=== PATIENT | male | born 1965 | race Two or more races ===

== ENCOUNTER 2022-07-26 21:41 | Emergency (ER) | payer MEDICAID, OTHER | END 2022-07-26 22:39 | disposition left against medical advice (07) | LOC: ER 21:41 | DX: R73.9 Hyperglycemia, unspecified (principal); Z53.21 Procedure and treatment not carried out due to patient leaving prior to being seen by health care provider ==

== ENCOUNTER 2025-05-12 20:43 | Emergency (ER) | payer MEDICAID ==
[~2025-05-12] VITALS: Ht 170.2 cm; Wt 81.8 kg
[2025-05-12 21:03] LABS: Hematocrit 46.7 % (41.0-53.0); Hemoglobin 16.3 g/dL (13.5-17.5); Mean Corpuscular Hemoglobin 31.3 pg (28.0-32.0); Mean Corpuscular Volume 89.6 fL (80.0-100.0); Nucleated Red Blood Cells % 0.1 %
[2025-05-12 21:09] LABS: Chloride 101 mmol/L (98-107); Potassium 4.0 mmol/L (3.5-5.1); Sodium 142 mmol/L (136-145)
[2025-05-12 21:10] LABS: Anion Gap 12 (5-15); Calcium 10.0 mg/dL (8.7-10.4); Carbon Dioxide 29 mmol/L (20-31)
--- NOTE | 2025-05-12 21:10 | ED.PDOC ---
HPI Comments 59-year-old male who came to ER for chest pain. Patient has history of diabetes and gastritis. He ate tacos and shortly afterwards developed midsternal chest pain, palpitations, diaphoresis. Would also complain of epigastric abdominal pain. Denies any nausea or vomiting. Chief Complaint: Chest Pain Time Seen by MD: 21:09 Reviewed Notes: Nurses Notes Allergies: Coded Allergies: NO KNOWN ALLERGIES (Unverified , 05/12/25) Information Source: Patient Mode of Arrival: Ambulatory Past Medical History PAST MEDICAL HISTORY: DM, PUD Past Medical History (Other): Gastritis Surgical History: Denies all surgeries Family History Family History: Reviewed,noncontributory to illness Social History Smoker: Non-Smoker Alcohol: Denies ETOH Use Drugs: Denies Drug Use Lives In: Home Constitutional: denies: chills, diaphoresis, fatigue, fever, malaise, sweats, weakness, others EENTM: denies: blurred vision, double vision, ear bleeding, ear discharge, ear drainage, ear pain, ear ringing, eye pain, eye redness, hearing loss, mouth pain, mouth swelling, nasal discharge, nose bleeding, nose congestion, nose pa in, photophobia, tearing, throat pain, throat swelling, voice changes, others Respiratory: denies: cough, hemoptysis, orthopnea, SOB at rest, shortness of breath, SOB with excertion, stridor, wheezing, others Cardiovascular: reports: chest pain, diaphoresis, palpitations; denies: dizzy spells, Dyspnea on exertion, edema, irregular heart beat, left arm pain, lightheadedness, PND, syncope, others Gastrointestinal: reports: abdominal pain; denies: abdomen distended, blood streaked bowels, constipated, diarrhea, dysphagia, difficulty swallowing, hematemesis, melena, nausea, poor appetite, poor fluid intake, rectal bleeding, rectal pain, vomiting, others Genitourinary: denies: burning, dysuria, flank pain, frequency, hematuria, incontinence, penile discharge, penile sore, pain, testicle pain, testicle swelling, urgency, others Neurological: denies: dizziness, fainting, headache, left sided numbness, left sided weakness, numbness, paresthesia, pre-existing deficit, right sided numbness, right sided weakness, seizure, speech problems, tingling, tremors, weakness, others Musculoskeletal: denies: back pain, gout, joint pain, joint swelling, muscle pain, muscle stiffness, neck pain, others Integumetry: denies: bruises, change in color, change in hair/nails, dryness, laceration, lesions, lumps, rash, wounds, others Allergic/Immunocompromised: denies: Difficulty Healing, Frequent Infections, H venus, Itching, others Hematologic/Lymphatic: denies: anemia, blood clots, easy bleeding, easy bruising, swollen glands, others Endocrine: denies: excessive hunger, excessive sweating, excessive thirst, excessive urination, flushing, intolerance to cold, intolerance to heat, unexplained weight gain, unexplained weight loss, others Psychiatric: denies: anxiety, bipolar disorder, depression, hopeless, panic disorder, schizophrenia, sleepless, suicidal, others Physical Exam General Appearance: No Apparent Distress, Normal HEENT: Normal ENT Inspection, Pharynx Normal, TMs Normal Neck: Full Range of Motion, Non-Tender, Normal, Normal Inspection Respiratory: Chest Non-Tender, Lungs Clear, No Accessory Muscle Use, No Respiratory Distress, Normal Breath Sounds Cardiovascular: No Edema, No JVD, No Murmur, No Gallop, Normal Peripheral Pulses, Regular Rate/Rhythm Breast Exam: Deferred Gastrointestinal: No Organomegaly, Non Tender, No Pulsatile Mass, Normal Bowel Sounds, Soft Genitalia: Deferred Pelvic: Deferred Rectal: Deferred Extremities: No calf tenderness, Normal capillary refill, Normal inspection, Normal range of motion, Non-tender, No pedal edema Musculoskeletal : Apperance: Normal Neurologic: Alert, offline cutter II-XII nml as Tested, No Motor Deficits, Normal Affect, Normal Mood, No Sensory Deficits Cerebellar Function: Normal Reflexes: Normal Skin: Dry, Normal Color, Warm Lymphatic: No Adenopathy EKG EKG : Pulse Rate (adult): 88 [place]: Normal Cardiac Rhythm: NSR Block: None Comments Isolated TWI in III Was a procedure done? Was a procedure done?: No CP Differential Dx Differential Diagnosis: Angina, Anxiety / Panic Attack Differential Diagnosis: Angina, Chest Wall Pain, Costochondritis, Esophageal reflux/spasm, Gastritis X-Ray, Labs, Meds, VS Vital Signs Date Time Temp Pulse Resp B/P (MAP) Pulse Ox O2 Delivery O2 Flow Rate FiO2 05/12/25 22:47 98.2 77 16 134/91 (105) 97 98.2 05/12/25 22:17 88 05/12/25 20:50 97.3 90 18 168/105 96 97.3 Lab Test 05/12/25 21:45 05/12/25 20:59 Range/Units Troponin I High Sensitivity < 3 L < 3 L </=54 ng/L White Blood Count 7.6 4.4-10.8 10^3/uL Red Blood Count 5.21 4.5-5.90 10^6/uL Hemoglobin 16.3 13.5-17.5 g/dL Hematocrit 46.7 41.0-53.0 % Mean Corpuscular Volume 89.6 80.0-100.0 fL Mean Corpuscular Hemoglobin 31.3 28.0-32.0 pg Mean Corpuscular Hemoglobin Concent 34.9 32.0-36.0 g/dL Red Cell Distribution Width 13.2 11.8-14.3 % Platelet Count 249 140-450 10^3/uL Mean Platelet Volume 8.0 6.9-10.8 fL Neutrophils (%) (Auto) 54.7 37.0-80.0 % Lymphocytes (%) (Auto) 35.7 10.0-50.0 % Monocytes (%) (Auto) 8.1 0.0-12.0 % Eosinophils (%) (Auto) 0.9 0.0-7.0 % Basophils (%) (Auto) 0.6 0.0-2.0 % Neutrophils # (Auto) 4.2 1.6-8.6 10 ^3/uL Lymphocytes # (Auto) 2.7 0.4-5.4 10 ^3/uL Monocytes # (Auto) 0.6 0-1.3 10 ^3/uL Eosinophils # (Auto) 0.1 0-0.8 10 ^3/uL Basophils # (Auto) 0 0-0.2 10 ^3/uL Nucleated Red Blood Cells 0.1 % Sodium Level 142 136-145 mmol/L Potassium Level 4.0 3.5-5.1 mmol/L Chloride Level 101 98-107 mmol/L Carbon Dioxide Level 29 20-31 mmol/L Anion Gap 12 5-15 Blood Urea Nitrogen 12 9-23 mg/dL Creatinine 1.11 0.700-1.30 mg/dL Glomerular Filtration Rate Calc 77 >90 mL/min BUN/Creatinine Ratio 10.8 10.0-20.0 Serum Glucose 281 H 74-106 mg/dL Calcium Level 10.0 8.7-10.4 mg/dL EXAM: XY CHEST XRAY 1 VIEW HISTORY: CP TECHNIQUE: 1 view of the chest COMPARISON: None FINDINGS/IMPRESSION: LUNGS: No pleural effusion, consolidation, or pneumothorax. MEDIASTINUM: Unremarkable. BONES: No acute osseous abnormality. OTHER: None. Time of 1ST Reevaluation: 21:05 Reevaluation 1ST: Unchanged Time of 2ND Reevaluation: 23:01 Reevaluation 2ND: Improved Patient Education/Counseling: Diagnosis, Treatment Family Education/Counseling: No Family Present SEPSIS Sepsis Screen Date sepsis recognized/suspect: May 12, 2025 Time Sepsis recognized/suspect: 2056 Recent Procedure: No On Antibiotic Therapy: No Respiratory Rate >20: No Heart Rate >90: No Temp<36 C (96.8 F) or >38.3 C: No SBP <90 or MAP <65 mmHG: No New Acute Mental Status Change: No Is the patient on CPAP, BIPAP,: No Physician Orders Electrocardigram (05/12/25 20:47) Electrocardigram (05/12/25 21:47) Electrocardigram (05/12/25 23:47) Chest Xray 1 View (05/12/25 20:47) Vital Signs Date Time Temp Pulse Resp B/P (MAP) Pulse Ox O2 Delivery O2 Flow Rate FiO2 05/12/25 22:47 98.2 77 16 134/91 (105) 97 98.2 05/12/25 22:17 88 05/12/25 20:50 97.3 90 18 168/105 96 97.3 Laboratory Tests Test 05/12/25 20:59 White Blood Count 7.6 10^3/uL (4.4-10.8) Departure 1 Departure Time of Disposition: 22:17 (59-year-old male with past medical history of hypertension and gastritis presenting for evaluation of midsternal chest discomfort which started shortly after he ate some tacos. Given symptoms triggered by eating with known gastritis seems discomfort likely related to underlying gastritis. Given the reports of midsternal chest discomfort consider possible ACS. Patient has a heart score of 2. Initial screening CBCs within normal limits. Serial troponins obtained negative, does not feel his symptoms distant with ACS. Patient appears comfortable, no tearing chest pain, no widened mediastinum on chest x-ray, not concerning for aortic aneurysm, dissection. Chest x-ray was performed which shows no evidence of any acute cardiopulmonary process. Patient was given oral Tylenol, viscous lidocaine, Pepcid, Maalox, Reglan with improvement of discomfort. Given serial troponins that are negative with symptoms that improved with GI cocktail pt is stable for discharge further outpatient workup and management. Will be given a prescription for Pepcid, Maalox, Zofran to take as needed.) Impression: Primary Impression: Midsternal chest pain Additional Impressions: Epigastric pain Nausea Disposition: HOME / SELF CARE / HOMELESS Condition: Stable e-Prescriptions Ondansetron Odt 4MG Tab (ZOFRAN PO) 4 Mg Tb 4 MG PO Q6HPRN PRN for 3 Days, #12 TAB ODT TAB-DISSOLVE IN MOUTH, THEN SWALLOW Prov: FATEMEH POSEY MD 05/12/25 Alum & Mag Hydrox-Simethicone (Maalox Plus) 30 Ml Ss 30 ML PO BIDPRN PRN for 7 Days, #240 ML Prov: FATEMEH POSEY MD 05/12/25 Famotidine (PEPCID TABLET) 20 Mg Tb 1 TAB PO DAILY PRN for 30 Days, #30 TAB 5 Refills Prov: FATEMEH POSEY MD 05/12/25 Discharged With: Self Critical Care Note Critical Care Time?: No Stability Stability form required: No Heart Score Heart Score: Heart Score Response (Comments) Value History Slightly Suspicious 0 EKG Normal 0 Age 45-64 1 Risk Factors 1 or 2 risk factors 1 Troponin Normal limit 0 Total 2 I personally scribed for FATEMEH POSEY MD ([email or web address]) on 05/12/25 at 21:09. Electronically submitted by Ortiz Chaudhary ([employer]). I personally scribed for FATEMEH POSEY MD ([email or web address]) on 05/12/25 at 21:44. Electronically submitted by Ortiz Chaudhary ([employer]). FATEMEH POSEY MD May 12, 2025 21:09
[2025-05-12 21:15] LABS: BUN/Creatinine Ratio 10.8 (10.0-20.0); Blood Urea Nitrogen 12 mg/dL (9-23)
[2025-05-12 21:19] LABS: Glucose 281 mg/dL (74-106)
--- NOTE | 2025-05-12 21:33 | DVH ---
EXAM: XY CHEST XRAY 1 VIEW HISTORY: CP TECHNIQUE: 1 view of the chest COMPARISON: None FINDINGS/IMPRESSION: LUNGS: No pleural effusion, consolidation, or pneumothorax. MEDIASTINUM: Unremarkable. BONES: No acute osseous abnormality. OTHER: None.
[2025-05-12 22:47] VITALS: BP 134/91; PULSE 77; RESP 16; TEMP 98.2; O2SAT 97
[2025-05-12] MEDS ORDERED: FAMO20TA10 PO (23:04)
[2025-05-12] MEDS ORDERED: ZOFR4T PO (23:04)
[2025-05-12] MEDS ORDERED: MAA30LQ PO (23:04)
[2025-05-12] MEDS: METOCLOPRAMIDE HCL 10 MG TAB PO ONE (23:35)
[2025-05-12] MEDS: MAALOX PLUS or MAALOX 30 ML PO ONE (23:35)
[2025-05-12] MEDS: FAMOTIDINE 20 MG TAB PO ONE (23:35)
[2025-05-12] MEDS: LIDOCAINE VISCOUS 2% 15ML UD PO ONE (23:36)
[2025-05-12] MEDS: ACETAMINOPHEN 500 MG TAB or CAP PO ONE (23:37)
--- NOTE | 2025-05-13 09:03 | ECG ---
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
== END 2025-05-12 23:43 | disposition home or self-care (01) ==
LOC: ER 20:43
DX: R07.89 Other chest pain (principal); R10.13 Epigastric pain; E11.9 Type 2 diabetes mellitus without complications; Z87.11 Personal history of peptic ulcer disease; Z87.19 Personal history of other diseases of the digestive system
CPT/HCPCS: 36415; 71045; 80048; 84484; 85025; 93005; 99285; J8597